=== PATIENT | female | born 1955 | race Caucasian/White ===

== ENCOUNTER 2022-07-19 10:15 | Inpatient (IN) | payer OTHER ==
[~2022-07-19] VITALS: Ht 157.5 cm; Wt 81.6 kg
[2022-07-19] MEDS ORDERED: PEPCID40 MG PO (12:55)
[2022-07-19] MEDS ORDERED: COZAAR100 MG PO (12:55)
[2022-07-19] MEDS ORDERED: SYNTHROID175 MCG PO (12:55)
[2022-07-19] MEDS ORDERED: FOLIC ACID0.8 M1 PO (12:56)
[2022-07-19] MEDS ORDERED: CHILDREN'S ASPI81 MG PO (12:56)
[2022-07-19] MEDS ORDERED: CALTRATE 600 +1 EAC1 PO (12:56)
[2022-08-02] MEDS ORDERED: NORFLEX100MG PO (12:31)
[2022-08-02] MEDS ORDERED: GABAPENTIN100 MG PO (12:31)
[2022-08-02] MEDS ORDERED: OXYC1TAB9 PO (12:32)
== END 2022-08-03 19:52 | DRG 470 ==
LOC: O/R 07-31 06:33 → SURH 07-31 06:33 → SURG 07-31 10:00 → SURH 07-31 21:26
PROVIDERS: ADMIT Orthopaedic Surgery; ATTEND Orthopaedic Surgery
PROC: 0SRD0JZ Replacement of Left Knee Joint with Synthetic Substitute, Open Approach (ICD-10-PCS; principal; 2022-07-31 10:00)
DX: M17.12 Unilateral primary osteoarthritis, left knee (principal); M85.862 Other specified disorders of bone density and structure, left lower leg; E03.9 Hypothyroidism, unspecified; I10 Essential (primary) hypertension; E66.9 Obesity, unspecified